=== PATIENT | female | born 1980 | race Caucasian/White ===

== ENCOUNTER → 2017-12-01 | Outpatient (CLI) | payer OTHER ==
[~2017-12-01] MED LIST: ACETAMINOPHEN-H1 TA2 PO; BENTYL10 MG PO; BIOTIN1000 MCG PO; CIPRO500 MG PO; DOXYCYCLINE MO100 MG PO; IBUPROFEN200 MG PO; LORATADINE10 MG PO; MULTIVITAMIN1 TAB PO; NAPROSYN500 MG PO; NAPROXEN500 M1 PO; OMEPRAZOLE D/R20 MG PO; OMEPRAZOLE40 MG PO; TYLENOL325 M2 PO; ULTRAM50 MG PO; VITAMIN B121000 MCG PO; VITAMIN C500 M4 PO
[2017-12-01 11:54] LABS: BASO % 0.3 % (0.0-1.0); EOS # 0.1 10*3/uL (0.0-0.4); EOS % 0.7 % (1.0-4.0); HEMATOCRIT 48.6 % (37.0-47.0); HEMOGLOBIN 15.5 g/dl (12.0-16.0); LYMPH # 1.7 10*3/uL (1.3-4.4); LYMPH % 18.7 % (27.0-41.0); MEAN CELL VOLUME 86.2 fl (81.0-99.0); MEAN CORPUSCULAR HGB 27.5 pg (27.0-31.0); MEAN CORPUSCULAR HGB CONC 31.9 g/dl (33.0-37.0); MEAN PLATELET VOLUME 13.3 fl (9.6-12.3); MONO # 0.6 10*3/uL (0.1-1.0); MONO % 6.3 % (3.0-9.0); NEUT # 6.8 10*3/uL (2.3-7.9); NEUT % 73.7 % (47.0-73.0); PLATELET COUNT AUTOMATED 243 10*3/uL (130-400); RED BLOOD COUNT 5.64 10*6/uL (4.10-5.10); RED CELL DISTRI WIDTH 13.9 % (0-14.5); WHITE BLOOD COUNT 9.2 10*3/uL (4.8-10.8)
[2017-12-01 12:18] LABS: LIPASE 114 U/L (73-393)
[2017-12-01 12:22] LABS: ALBUMIN 4.2 gm/dl (3.1-4.5); ALKALINE PHOSPHATASE 103 U/L (45-117); BUN 12 mg/dl (7-24); CHLORIDE 104 mmol/L (98-107); CHOLESTEROL 202 mg/dL (<200); CREATININE 0.97 mg/dL (0.55-1.02); HDL CHOLESTEROL 62 mg/dl (40-60); IRON 127 ug/dL (50-170); LDL CHOLESTEROL 124 mg/dL (9-159); SGOT/AST 20 IU/L (3-35); SGPT/ALT 48 U/L (12-78); SODIUM 136 mmol/L (136-145); TOTAL IRON BINDING CAPACITY 454 ug/dl (250-450); TOTAL PROTEIN 8.4 gm/dL (6.4-8.2); TRIGLYCERIDES 79 mg/dl (<150); VLDL CHOLESTEROL 16 mg/dL (6-40)
[2017-12-01 13:15] LABS: FERRITIN 46.1 ng/mL (10.0-291.0); VITAMIN D, 25-HYDROXY 27.4 ng/mL (30-100)
[2017-12-02 17:38] LABS: RHEUMATOID ARTHRITIS FACTOR <10.0 IU/mL (0.0-13.9)
[2017-12-02 22:05] LABS: CCP ANTIBODIES IGG/IGA 20 units (0-19)
== END | disposition home or self-care (01) ==
LOC: LAB 11:04
PROVIDERS: Internal Medicine Gastroenterology; Nurse Practitioner Family
DX: M25.562 Pain in left knee (principal); R10.84 Generalized abdominal pain; E78.2 Mixed hyperlipidemia; J45.909 Unspecified asthma, uncomplicated; E55.9 Vitamin D deficiency, unspecified; E66.9 Obesity, unspecified

== ENCOUNTER → 2018-01-20 | Outpatient (CLI) | payer OTHER | END | disposition home or self-care (01) | LOC: US 01-14 16:00 | DX: N89.8 Other specified noninflammatory disorders of vagina (principal); R10.2 Pelvic and perineal pain ==

== ENCOUNTER 2018-03-01 11:18 | Emergency (ER) | payer OTHER ==
[~2018-03-01] VITALS: Ht 157.4 cm; Wt 88.9 kg
[2018-03-01 11:42] LABS: BASO % 0.4 % (0.0-1.0); EOS # 0.1 10*3/uL (0.0-0.4); EOS % 1.1 % (1.0-4.0); HEMATOCRIT 43.7 % (37.0-47.0); HEMOGLOBIN 14.5 g/dl (12.0-16.0); LYMPH # 1.8 10*3/uL (1.3-4.4); LYMPH % 17.4 % (27.0-41.0); MEAN CELL VOLUME 86.4 fl (81.0-99.0); MEAN CORPUSCULAR HGB 28.7 pg (27.0-31.0); MEAN CORPUSCULAR HGB CONC 33.2 g/dl (33.0-37.0); MEAN PLATELET VOLUME 12.5 fl (9.6-12.3); MONO # 0.8 10*3/uL (0.1-1.0); MONO % 7.2 % (3.0-9.0); NEUT # 7.7 10*3/uL (2.3-7.9); NEUT % 73.7 % (47.0-73.0); PLATELET COUNT AUTOMATED 284 10*3/uL (130-400); RED BLOOD COUNT 5.06 10*6/uL (4.10-5.10); RED CELL DISTRI WIDTH 13.9 % (0-14.5); WHITE BLOOD COUNT 10.4 10*3/uL (4.8-10.8)
[2018-03-01 11:46] LABS: BILIRUBIN NEGATIVE (NEGATIVE); BLOOD NEGATIVE (NEGATIVE); CLARITY SL CLOUDY (CLEAR); COLOR YELLOW (YELLOW); GLUCOSE NEGATIVE (NEGATIVE); KETONE NEGATIVE (NEGATIVE); LEUKO ESTERASE NEGATIVE (NEGATIVE); NITRITE NEGATIVE (NEGATIVE); SPECIFIC GRAVITY 1.015 (1.005-1.030); UROBILINOGEN 0.2 E.U./dl (0.2-1.0)
[2018-03-01 11:56] LABS: ALBUMIN 3.7 gm/dl (3.1-4.5); ALKALINE PHOSPHATASE 88 U/L (45-117); BUN 15 mg/dl (7-24); CHLORIDE 109 mmol/L (98-107); CREATININE 0.91 mg/dL (0.55-1.02); POTASSIUM 4.2 mmol/L (3.5-5.1); SGOT/AST 18 IU/L (3-35); SGPT/ALT 40 U/L (12-78); SODIUM 140 mmol/L (136-145); TOTAL PROTEIN 7.6 gm/dL (6.4-8.2)
[2018-03-01 12:03] LABS: BACTERIA 2+; MUCOUS 1+; WBC 0-2 wbc/hpf (0-5)
== END 2018-03-01 12:19 | disposition home or self-care (01) ==
LOC: ED 11:18
PROVIDERS: Nurse Practitioner Family
DX: R10.32 Left lower quadrant pain (principal); Z90.89 Acquired absence of other organs; Z98.51 Tubal ligation status; Z98.890 Other specified postprocedural states; Z79.899 Other long term (current) drug therapy

== ENCOUNTER 2018-03-29 11:13 | Emergency (ER) | payer OTHER ==
[~2018-03-29] VITALS: Ht 157.4 cm; Wt 89.4 kg
[2018-03-29 11:51] LABS: BILIRUBIN NEGATIVE (NEGATIVE); BLOOD NEGATIVE (NEGATIVE); CLARITY SL CLOUDY (CLEAR); COLOR YELLOW (YELLOW); GLUCOSE NEGATIVE (NEGATIVE); KETONE NEGATIVE (NEGATIVE); LEUKO ESTERASE NEGATIVE (NEGATIVE); NITRITE NEGATIVE (NEGATIVE); SPECIFIC GRAVITY 1.015 (1.005-1.030); UROBILINOGEN 0.2 E.U./dl (0.2-1.0)
[2018-03-29 11:52] LABS: BASO % 0.4 % (0.0-1.0); EOS # 0.1 10*3/uL (0.0-0.4); EOS % 0.9 % (1.0-4.0); HEMATOCRIT 46.5 % (37.0-47.0); HEMOGLOBIN 15.1 g/dl (12.0-16.0); LYMPH # 1.8 10*3/uL (1.3-4.4); LYMPH % 17.6 % (27.0-41.0); MEAN CELL VOLUME 86.9 fl (81.0-99.0); MEAN CORPUSCULAR HGB 28.2 pg (27.0-31.0); MEAN CORPUSCULAR HGB CONC 32.5 g/dl (33.0-37.0); MEAN PLATELET VOLUME 12.3 fl (9.6-12.3); MONO # 0.7 10*3/uL (0.1-1.0); MONO % 7.4 % (3.0-9.0); NEUT # 7.3 10*3/uL (2.3-7.9); NEUT % 73.4 % (47.0-73.0); PLATELET COUNT AUTOMATED 254 10*3/uL (130-400); RED BLOOD COUNT 5.35 10*6/uL (4.10-5.10); RED CELL DISTRI WIDTH 14.4 % (0-14.5)
[2018-03-29 12:03] LABS: BACTERIA 2+; RBC 0-2 rbc/hpf (0-2)
[2018-03-29 12:08] LABS: ALBUMIN 3.7 gm/dl (3.1-4.5); ALKALINE PHOSPHATASE 94 U/L (45-117); BUN 9 mg/dl (7-24); CHLORIDE 107 mmol/L (98-107); CREATININE 0.95 mg/dL (0.55-1.02); LIPASE 138 U/L (73-393); POTASSIUM 4.3 mmol/L (3.5-5.1); SGOT/AST 23 IU/L (3-35); SGPT/ALT 40 U/L (12-78); SODIUM 139 mmol/L (136-145); TOTAL PROTEIN 7.9 gm/dL (6.4-8.2)
[2018-05-12] MEDS ORDERED: CELEXA10 MG PO (11:47)
[2018-05-12] MEDS ORDERED: DIAZEPAM5 MG PO (11:48)
[2018-05-12] MEDS ORDERED: BUSPAR15 MG PO (11:48)
[2018-05-16] MEDS ORDERED: NORCO 5-325 TA1 EACH PO (08:23)
[2018-05-16] MEDS ORDERED: Motrin,Rufen800 MG PO (08:23)
[2018-07-19] MEDS ORDERED: PROTONIX40 MG PO (11:55)
[2018-08-30] MEDS ORDERED: POTASSIUM99 M5 PO (10:11)
[2018-09-19] MEDS ORDERED: LIDEX 0.05% CRE15 GM T (14:41)
[2018-09-19] MEDS ORDERED: MEDROL DOSEPAK4 MG PO (15:10)
== END 2018-03-29 14:04 | disposition home or self-care (01) ==
LOC: ED 11:13
PROVIDERS: Nurse Practitioner Family
DX: G43.909 Migraine, unspecified, not intractable, without status migrainosus (principal); G89.29 Other chronic pain; R10.9 Unspecified abdominal pain; Z79.2 Long term (current) use of antibiotics; Z79.899 Other long term (current) drug therapy

== ENCOUNTER → 2018-05-16 | Day surgery (SDC) | payer OTHER ==
[~2018-05-16] VITALS: Ht 157.4 cm; Wt 90.3 kg
[~2018-05-16] MED LIST changes: +BUSPAR15 MG PO; +BUSPAR5 MG PO; +CELEXA10 MG PO; +DIAZEPAM5 MG PO; +HYDROCODONE-AC1 EAC1 PO; +LIDEX 0.05% CRE15 GM T; +MEDROL DOSEPAK4 MG PO; +Motrin,Rufen800 MG PO; +NORCO 5-325 TA1 EACH PO; +POTASSIUM99 M5 PO; +PROTONIX40 MG PO
[2018-05-16 07:00] VITALS: BP 138/84
[2018-05-16 08:22] VITALS: BP 154/71
[2018-05-16 08:37] VITALS: BP 132/46
[2018-05-16 08:52] VITALS: BP 102/55
[2018-05-16 09:07] VITALS: BP 114/57
[2018-05-16 09:22] VITALS: BP 117/61
== END | disposition home or self-care (01) ==
LOC: SDC 05-12 11:00
DX: N83.8 Other noninflammatory disorders of ovary, fallopian tube and broad ligament (principal); N88.2 Stricture and stenosis of cervix uteri; G43.909 Migraine, unspecified, not intractable, without status migrainosus; J45.909 Unspecified asthma, uncomplicated; E78.5 Hyperlipidemia, unspecified; K21.9 Gastro-esophageal reflux disease without esophagitis; M06.9 Rheumatoid arthritis, unspecified; F10.229 Alcohol dependence with intoxication, unspecified; F41.9 Anxiety disorder, unspecified; F32.9 Major depressive disorder, single episode, unspecified; E66.9 Obesity, unspecified; Z68.36 Body mass index [BMI] 36.0-36.9, adult; Z86.718 Personal history of other venous thrombosis and embolism; Z98.890 Other specified postprocedural states; Z98.51 Tubal ligation status; Z79.899 Other long term (current) drug therapy; Z86.73 Personal history of transient ischemic attack (TIA), and cerebral infarction without residual deficits; Z82.49 Family history of ischemic heart disease and other diseases of the circulatory system; Z82.3 Family history of stroke; Z83.3 Family history of diabetes mellitus

== ENCOUNTER → 2018-07-25 | Outpatient (CLI) | payer OTHER ==
[~2018-07-25] VITALS: Ht 162.5 cm; Wt 91.6 kg
[2018-07-26 06:56] VITALS: BP 115/44
--- NOTE | 2018-07-26 08:18 | NUR ---
SURGERY CANCELLED DUE TO EQUIPMENT ISSUES. DR. ROBLERO SPOKE TO PT. IV D'CD, CATHETER INTACT, 2X2 APPLIED. DISCHARGED AMBULATORY WITH MOTHER.
== END ==
LOC: SDC 07-19 14:00 → LAB 07:46 → SDC 07-26 00:14 → EDSTATUS 07-26 14:00
DX: N94.6 Dysmenorrhea, unspecified (principal); N93.9 Abnormal uterine and vaginal bleeding, unspecified; R10.2 Pelvic and perineal pain; G89.29 Other chronic pain; G43.909 Migraine, unspecified, not intractable, without status migrainosus; J45.909 Unspecified asthma, uncomplicated; E78.5 Hyperlipidemia, unspecified; K21.9 Gastro-esophageal reflux disease without esophagitis; M06.9 Rheumatoid arthritis, unspecified; F19.10 Other psychoactive substance abuse, uncomplicated; E66.9 Obesity, unspecified; Z68.34 Body mass index [BMI] 34.0-34.9, adult; F10.129 Alcohol abuse with intoxication, unspecified; Z79.899 Other long term (current) drug therapy; Z98.890 Other specified postprocedural states; Z98.51 Tubal ligation status; Z86.718 Personal history of other venous thrombosis and embolism; Z82.3 Family history of stroke; Z82.49 Family history of ischemic heart disease and other diseases of the circulatory system; Z83.3 Family history of diabetes mellitus

== ENCOUNTER 2018-09-06 01:08 | Inpatient (IN) | payer OTHER ==
[~2018-09-06] VITALS: Ht 157.4 cm; Wt 91.6 kg
[2018-09-06] VITALS (11 sets, daily range): BP systolic 110–142; BP diastolic 46–77
[~2018-09-06 01:08] MED LIST changes: -BUSPAR5 MG PO; -HYDROCODONE-AC1 EAC1 PO; -LIDEX 0.05% CRE15 GM T; -MEDROL DOSEPAK4 MG PO
--- NOTE | 2018-09-06 09:18 | NUR ---
PER DR GU, GIVE PATIENT 2 MG IV VERSED. PATIENT'S IV WAS INFILTRATED SO HE BELIEVED SHE DID NOT GET THE FIRST DOSE.
--- NOTE | 2018-09-06 14:00 | NUR ---
Time: 1399 A 38 year old FEMALE admitted to under services of SHAR HERNANDEZ DO. Pt. arrived via stretcher from [place]. Chief complaint: S/P HYSTERECTOMY. ERNA AMOS
[2018-09-06] MEDS ORDERED: BUSPAR5 MG PO (14:05)
--- NOTE | 2018-09-06 14:20 | NUR ---
Shift chart check completed.
--- NOTE | 2018-09-06 15:58 | NUR ---
REGLAN & ZOFRAN GIVEN FOR C/O MILD NAUSEA & STOMACH CRAMPS. NO BOWEL MOVEMENT SINCE WEDNESDAY BUT WAS DIARRHEA FOR 4 DAYS PRIOR TO THAT D/T IBS. LAP SITES X2 GLUED & NO REDNESS/DRAINAGE SEEN.
--- NOTE | 2018-09-06 17:03 | NUR ---
SOME RELIEF FROM REGLAN & ZOFRAN - PAIN NOW 07/18...ROUTINE TORADOL GIVEN. SCD & JANNETTE PINEDA ON
--- NOTE | 2018-09-06 18:31 | NUR ---
PAIN STILL 07/18 BUT NOT SHARP & SHE IS NOW STRTING TO FEEL THINGS MOVE ABOUT
--- NOTE | 2018-09-06 21:09 | NUR ---
pt given norco one tablet as ordered for pain 8/10 lower abdominal.
--- NOTE | 2018-09-06 21:50 | NUR ---
CALLED DR. ROBLERO AND NOTIFIED HER OF PT. IN SEVERE PAIN AFTER MOVING FROM RIGHT SIDE TO BACK AND TO SOON TO GIVEN NORCO. ORDER RECEIVED TO ANOTHER [place] AT THIS TIME.
--- NOTE | 2018-09-06 21:57 | NUR ---
SEGUNDOCO GIVEN PER ORDER 1 TAB FOR SEVERE PAIN. SEE MAR.
--- NOTE | 2018-09-06 22:33 | NUR ---
MYLECON GIVEN PER ORDER FOR GAS. SEE MAR.
--- NOTE | 2018-09-06 22:39 | NUR ---
SECOND NORCO EFFECTIVE FOR PAIN PER PT.
--- NOTE | 2018-09-06 22:54 | NUR ---
NORCO EFFECTIVE FOR PAIN PER PT.
--- NOTE | 2018-09-06 23:40 | NUR ---
CHRISTIANE EFFECTIVE PER PT.
[2018-09-07] VITALS: BP 117/50
--- NOTE | 2018-09-07 04:21 | NUR ---
NORCO 2 TABS GIVEN AT THIS TIME FOR ABDOMEN PAIN 09/17.
--- NOTE | 2018-09-07 05:20 | NUR ---
NORCO BECOMING EFFECTIVE FOR ABD PAIN PER PT. EDUCATED ON SPLINTING ABD WITH COUGHING, LAUGHING OR SNEEZING. PT. VOICED UNDERSTANDING.
--- NOTE | 2018-09-07 05:58 | NUR ---
FAHAD GARCIA [id number] Please refer to the physician's history and physical for past medical history, comorbid conditions, and allergies. Diagnosis: S/P LAP ASSISTED VAGINAL HYSTERECTOMY Fadi Score: 21,LOW OR NO RISK WOUND DESCRIPTIONS: Wound Number: 1 Location of the wound: right lower abdomen Type of wound: surgical Thickness: Partial Size: 0.1cm x 1.6cm x <0.1cm Tunneling: none Undermining: none Sinus Tract: none Presence of Exudate: none Amount: None Color: Red Odor: None Periwound Skin Appearance: Normal Wound edges: approximated with glue Pain (associated with wound): none at time of assessment How does patient state this happened? pt stated she had surgery yesterday with Dr. Jacobsen. Wound Number: 2 Location of the wound: umbilicus Type of wound: surgical Thickness: Partial Size: 0.5cm x 0.2cm x <0.1cm Tunneling: none Undermining: none Sinus Tract: none Presence of Exudate: none Amount: None Color: Red Odor: None Periwound Skin Appearance: Normal Wound edges: approximated with glue Pain (associated with wound): none at time of assessment How does patient state this happened? pt stated she had surgery yesterday with Dr. Jacobsen. Wound Number: 1 Location of the wound: left lower abdomen Type of wound: surgical Thickness: Partial Size: 0.1cm x 2.5cm x <0.1cm Tunneling: none Undermining: none Sinus Tract: none Presence of Exudate: none Amount: None Color: Red Odor: None Periwound Skin Appearance: Normal Wound edges: approximated with glue Pain (associated with wound): none at time of assessment How does patient state this happened? pt stated she had surgery yesterday with Dr. Jacobsen. Patient stated she will follow up with Dr. Jacobsen in one month. Surface the patient is resting on: Position Pro SKIN PREVENTION RECOMMENDATION: 1. Pressure redistribution support surface as appropriate 2. Elevate heels 3. Remove boots/TEDS every shift and reapply 4. Head of bed 30 degrees as tolerated 5. Assess nutrition and hydration 6. Manage moisture 7. Avoid the use of containment devices while in bed 8. Use absorptive products on surfaces limit layers of linens on bed 9. Turn and reposition every 1-2 hours in bed and every 1 hour in chair as tolerated 10. Weight shifts every 15 minutes while up in chair 11. Offloading with pillows or device to keep heels elevated off bed 12. Monitor skin at least every shift 13. Inspect under medical devices twice a day
--- NOTE | 2018-09-07 06:06 | NUR ---
CAMPBELL CATHETER REMOVED PER ORDER. PT. TOLERATED WELL. PT. SITTING UP AT SIDE OF BED. SPLINTING DONE. I.S. INUSE
[2018-09-07 07:06] LABS: BASO % 0.2 % (0.0-1.0); HEMATOCRIT 40.8 % (37.0-47.0); LYMPH # 1.8 10*3/uL (1.3-4.4); LYMPH % 9.3 % (27.0-41.0); MEAN CELL VOLUME 87.4 fl (81.0-99.0); MEAN CORPUSCULAR HGB 27.8 pg (27.0-31.0); MEAN CORPUSCULAR HGB CONC 31.9 g/dl (33.0-37.0); MEAN PLATELET VOLUME 13.6 fl (9.6-12.3); MONO # 1.1 10*3/uL (0.1-1.0); MONO % 5.6 % (3.0-9.0); NEUT # 16.6 10*3/uL (2.3-7.9); NEUT % 84.4 % (47.0-73.0); PLATELET COUNT AUTOMATED 218 10*3/uL (130-400); RED BLOOD COUNT 4.67 10*6/uL (4.10-5.10); RED CELL DISTRI WIDTH 13.6 % (0-14.5); WHITE BLOOD COUNT 19.6 10*3/uL (4.8-10.8)
[2018-09-07 08:00] VITALS: BP 140/74
--- NOTE | 2018-09-07 08:02 | NUR ---
PT VOIDING SINCE CAMPBELL CATHETER REMOVED.
--- NOTE | 2018-09-07 08:58 | NUR ---
PT MEDICATED WITH 2 NORCO AT HER REQUEST FOR SURGICAL SITE ABD PAIN.
--- NOTE | 2018-09-07 09:00 | NUR ---
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 Patient states lives at home with her daughter. There are 0 steps in the home. Physician: [facility] Bowman [facility]: [facility] Home health services: none Patient's level of ADLs: INDEPENDENT Patient has working utilities: yes DME: none Follow-up physician's appointment after d/c: she prefers to make her own follow up appt after discharge Does patient want to access PORTAL?: no Discharge plan discussed with patient. She lives at home with her daughter. After discharge she is going to stay with her mom for the night and then return home the next day. She is independent in her ADLs and ambulation. Discussed home health care services and she denies any home needs at this time. When medically stable she will be discharged to home. Her mother, Dhara, will transport on discharge. 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
[2018-09-07 12:00] VITALS: BP 134/76
[2018-09-07] MEDS ORDERED: HYDROCODONE-AC1 EAC1 PO (12:40)
[2018-09-07] MEDS ORDERED: Motrin,Rufen800 MG PO (12:40)
--- NOTE | 2018-09-07 13:52 | NUR ---
Discharge instructions reviewed with patient/family. Patient receptive and verbalizes understanding. Follow-up care arranged. Written instructions given to patient/family. ERNA AMOS
--- NOTE | 2018-09-07 13:59 | NUR ---
PT DISCHARGED AT THIS TIME WITH MOTHER TO HOME.
--- NOTE | 2018-09-07 13:59 | NUR ---
BINDER PLACED TO PT'S ABD.
[2018-09-19] MEDS ORDERED: LIDEX 0.05% CRE15 GM T (14:41)
[2018-09-19] MEDS ORDERED: MEDROL DOSEPAK4 MG PO (15:10)
== END 2018-09-07 13:59 | disposition home or self-care (01) | DRG 743 ==
LOC: LAB 01:08 → SDC 01:08 → 4E 08:18 → SDC 09:30 → LAB 09:30 → 4E 09-07 13:59
PROVIDERS: ADMIT Obstetrics & Gynecology
PROC: 0UT9FZZ Resection of Uterus, Via Natural or Artificial Opening With Percutaneous Endoscopic Assistance (ICD-10-PCS; principal; 2018-09-06)
PROC: 0UT7FZZ Resection of Bilateral Fallopian Tubes, Via Natural or Artificial Opening With Percutaneous Endoscopic Assistance (ICD-10-PCS; 2018-09-06)
DX: N88.2 Stricture and stenosis of cervix uteri (principal); N80.0 Endometriosis of uterus; G89.29 Other chronic pain; N83.8 Other noninflammatory disorders of ovary, fallopian tube and broad ligament; E28.2 Polycystic ovarian syndrome; J45.909 Unspecified asthma, uncomplicated; N94.6 Dysmenorrhea, unspecified; M06.9 Rheumatoid arthritis, unspecified; E78.5 Hyperlipidemia, unspecified; K21.9 Gastro-esophageal reflux disease without esophagitis; G43.909 Migraine, unspecified, not intractable, without status migrainosus; F19.10 Other psychoactive substance abuse, uncomplicated; K58.9 Irritable bowel syndrome, unspecified; Z98.51 Tubal ligation status; Z82.3 Family history of stroke; Z82.61 Family history of arthritis; Z87.19 Personal history of other diseases of the digestive system; Z86.718 Personal history of other venous thrombosis and embolism; Z82.49 Family history of ischemic heart disease and other diseases of the circulatory system; Z79.899 Other long term (current) drug therapy

== ENCOUNTER 2019-01-29 17:21 | Emergency (ER) | payer OTHER ==
[~2019-01-29] VITALS: Ht 157.4 cm; Wt 93.9 kg
[~2019-01-29 17:21] MED LIST changes: +BUSPAR5 MG PO; +HYDROCODONE-AC1 EAC1 PO; +LIDEX 0.05% CRE15 GM T; +MEDROL DOSEPAK4 MG PO
[2019-01-29] MEDS ORDERED: Motrin,Rufen800 MG PO (19:27)
[2019-01-29] MEDS ORDERED: CYCLOBENZAPRINE5 M3 PO (19:27)
== END 2019-01-29 19:28 | disposition home or self-care (01) ==
LOC: ED 17:21
DX: S09.90XA Unspecified injury of head, initial encounter (principal); M54.12 Radiculopathy, cervical region; K21.9 Gastro-esophageal reflux disease without esophagitis; J45.909 Unspecified asthma, uncomplicated; M06.9 Rheumatoid arthritis, unspecified; W22.09XA Striking against other stationary object, initial encounter; Y93.89 Activity, other specified; Y92.69 Other specified industrial and construction area as the place of occurrence of the external cause; Y99.8 Other external cause status

== ENCOUNTER 2019-11-08 18:12 | Emergency (ER) | payer OTHER ==
[~2019-11-08 18:12] MED LIST changes: +CYCLOBENZAPRINE5 M3 PO
[2019-11-08] MEDS ORDERED: DOXYCYCLINE100 M3 PO (20:41)
[2019-11-08] MEDS ORDERED: ANTIBIOTIC28.4 GM T (20:41)
[2019-11-08] MEDS ORDERED: IBU800 MG PO (20:41)
== END 2019-11-08 20:58 | disposition home or self-care (01) ==
LOC: ED 18:12
DX: S16.1XXA Strain of muscle, fascia and tendon at neck level, initial encounter (principal); M54.6 Pain in thoracic spine; L08.9 Local infection of the skin and subcutaneous tissue, unspecified; Z88.8 Allergy status to other drugs, medicaments and biological substances; Z79.899 Other long term (current) drug therapy; W18.39XA Other fall on same level, initial encounter; Y93.89 Activity, other specified; Y92.89 Other specified places as the place of occurrence of the external cause; Y99.8 Other external cause status

== ENCOUNTER 2020-06-18 18:42 | Emergency (ER) | payer OTHER ==
[~2020-06-18] VITALS: Ht 157.4 cm; Wt 115.7 kg
[~2020-06-18 18:42] MED LIST changes: +ANTIBIOTIC28.4 GM T; +DOXYCYCLINE100 M3 PO; +IBU800 MG PO
[2020-06-18] MEDS ORDERED: NAPROSYN500 MG PO (22:24)
== END 2020-06-18 23:30 | disposition home or self-care (01) ==
LOC: ED 18:42
DX: M79.662 Pain in left lower leg (principal); Z90.89 Acquired absence of other organs; Z79.899 Other long term (current) drug therapy; Z88.8 Allergy status to other drugs, medicaments and biological substances; Z86.718 Personal history of other venous thrombosis and embolism

== ENCOUNTER → 2021-01-12 | Outpatient (CLI) | payer BC, OTHER ==
[2021-01-12 14:33] LABS: BASO # 0.1 10*3/uL (0.0-0.1); BASO % 0.5 % (0.0-1.0); EOS # 0.2 10*3/uL (0.0-0.4); EOS % 2.1 % (1.0-4.0); HEMATOCRIT 45.1 % (37.0-47.0); LYMPH # 2.4 10*3/uL (1.3-4.4); LYMPH % 22.8 % (27.0-41.0); MEAN CELL VOLUME 85.1 fl (81.0-99.0); MEAN CORPUSCULAR HGB 27.2 pg (27.0-31.0); MEAN CORPUSCULAR HGB CONC 31.9 g/dl (33.0-37.0); MEAN PLATELET VOLUME 12.6 fl (9.6-12.3); MONO # 0.8 10*3/uL (0.1-1.0); MONO % 7.2 % (3.0-9.0); NEUT # 7.2 10*3/uL (2.3-7.9); PLATELET COUNT AUTOMATED 289 10*3/uL (130-400); RED CELL DISTRI WIDTH 13.8 % (0-14.5); WHITE BLOOD COUNT 10.7 10*3/uL (4.8-10.8)
[2021-01-12 14:51] LABS: ALBUMIN 3.5 gm/dl (3.1-4.5); ALKALINE PHOSPHATASE 101 U/L (45-117); BUN 12 mg/dl (7-24); CHLORIDE 106 mmol/L (98-107); CHOLESTEROL 188 mg/dL (<200); CREATININE 0.83 mg/dL (0.55-1.02); LDL CHOLESTEROL 121 mg/dL (9-159); POTASSIUM 3.9 mmol/L (3.5-5.1); SGOT/AST 17 IU/L (3-35); SGPT/ALT 44 U/L (12-78); SODIUM 136 mmol/L (136-145); TRIGLYCERIDES 81 mg/dl (<150)
== END | disposition home or self-care (01) ==
LOC: LAB 13:42
PROVIDERS: ATTEND Nurse Practitioner Family
DX: E78.2 Mixed hyperlipidemia (principal); E55.9 Vitamin D deficiency, unspecified

== ENCOUNTER → 2021-04-15 | Outpatient (CLI) | payer BC, OTHER | END | disposition home or self-care (01) | LOC: RAD 16:05 | PROVIDERS: ATTEND Nurse Practitioner Family | DX: M25.551 Pain in right hip (principal) ==

== ENCOUNTER → 2021-10-14 | Outpatient (CLI) | payer BC, OTHER | END | disposition home or self-care (01) | LOC: RAD 16:16 | PROVIDERS: ATTEND Nurse Practitioner Family | DX: U07.1 COVID-19 (principal) ==

== ENCOUNTER → 2021-12-04 | Outpatient (CLI) | payer BC, OTHER | END | disposition home or self-care (01) | LOC: RAD 13:48 | PROVIDERS: ATTEND Nurse Practitioner Family | DX: M21.242 Flexion deformity, left finger joints (principal); M79.89 Other specified soft tissue disorders ==

== ENCOUNTER 2022-09-28 14:49 | Emergency (ER) | payer BC, OTHER ==
[~2022-09-28] VITALS: Ht 157.4 cm; Wt 114.3 kg
[2022-09-28 15:37] LABS: BASO # 0.1 10*3/uL (0.0-0.1); BASO % 0.4 % (0.0-1.0); EOS # 0.1 10*3/uL (0.0-0.4); EOS % 0.9 % (1.0-4.0); HEMATOCRIT 42.5 % (37.0-47.0); LYMPH % 20.8 % (27.0-41.0); MEAN CELL VOLUME 83.8 fl (81.0-99.0); MEAN CORPUSCULAR HGB 28.2 pg (27.0-31.0); MEAN CORPUSCULAR HGB CONC 33.6 g/dl (33.0-37.0); MEAN PLATELET VOLUME 12.3 fl (9.6-12.3); MONO % 6.8 % (3.0-9.0); NEUT # 10.1 10*3/uL (2.3-7.9); NEUT % 70.7 % (47.0-73.0); PLATELET COUNT AUTOMATED 278 10*3/uL (130-400); RED BLOOD COUNT 5.07 10*6/uL (4.10-5.10); RED CELL DISTRI WIDTH 13.8 % (0-14.5); WHITE BLOOD COUNT 14.3 10*3/uL (4.8-10.8)
[2022-09-28 15:58] LABS: ALKALINE PHOSPHATASE 109 U/L (46-116); BUN 10 mg/dl (9-23); CHLORIDE 107 mmol/L (98-107); LIPASE 37 U/L (12-53); POTASSIUM 3.7 mmol/L (3.4-5.1); SGPT/ALT 27 U/L (10-49); TOTAL PROTEIN 7.4 gm/dL (6.0-8.0)
[2022-09-28 17:15] LABS: BILIRUBIN Negative (Negative); BLOOD Negative (Negative); CLARITY Clear (Clear); COLOR Yellow (Yellow); GLUCOSE Negative (Negative); KETONE Negative (Negative); LEUKO ESTERASE Negative (Negative); NITRITE Negative (Negative); PH 5.5 (4.5-8.0); UROBILINOGEN 0.2 E.U./dl (0.0-1.0)
[2022-09-28 17:22] LABS: RBC 0-2 rbc/hpf (0-2)
[2022-09-28] MEDS ORDERED: PERCOCET 5-3251 EACH PO (17:46)
[2022-09-28] MEDS ORDERED: CIPRO500 MG PO (17:46)
[2022-09-28] MEDS ORDERED: METRONIDAZOLE500 M1 PO (17:46)
== END 2022-09-28 17:55 | disposition home or self-care (01) ==
LOC: ED 14:49
PROVIDERS: Nurse Practitioner Family
DX: K52.9 Noninfective gastroenteritis and colitis, unspecified (principal); K92.1 Melena; F41.9 Anxiety disorder, unspecified; K21.9 Gastro-esophageal reflux disease without esophagitis; Z79.2 Long term (current) use of antibiotics; Z79.899 Other long term (current) drug therapy; Z90.89 Acquired absence of other organs; Z98.51 Tubal ligation status

== ENCOUNTER 2022-10-15 11:39 | Emergency (ER) | payer BC, OTHER ==
[~2022-10-15] VITALS: Ht 157.4 cm; Wt 112.5 kg
[~2022-10-15 11:39] MED LIST changes: +METRONIDAZOLE500 M1 PO; +PERCOCET 5-3251 EACH PO
[2022-10-15 12:24] LABS: BASO # 0.1 10*3/uL (0.0-0.1); BASO % 0.5 % (0.0-1.0); EOS # 0.2 10*3/uL (0.0-0.4); EOS % 1.8 % (1.0-4.0); HEMATOCRIT 43.4 % (37.0-47.0); LYMPH # 2.1 10*3/uL (1.3-4.4); LYMPH % 19.4 % (27.0-41.0); MEAN CELL VOLUME 86.1 fl (81.0-99.0); MEAN CORPUSCULAR HGB 28.6 pg (27.0-31.0); MEAN CORPUSCULAR HGB CONC 33.2 g/dl (33.0-37.0); MEAN PLATELET VOLUME 12.2 fl (9.6-12.3); MONO # 0.9 10*3/uL (0.1-1.0); MONO % 8.1 % (3.0-9.0); NEUT # 7.7 10*3/uL (2.3-7.9); NEUT % 69.9 % (47.0-73.0); PLATELET COUNT AUTOMATED 258 10*3/uL (130-400); RED BLOOD COUNT 5.04 10*6/uL (4.10-5.10)
[2022-10-15 12:51] LABS: ALKALINE PHOSPHATASE 103 U/L (46-116); BUN 10 mg/dl (9-23); CHLORIDE 106 mmol/L (98-107); LIPASE 35 U/L (12-53); POTASSIUM 4.1 mmol/L (3.4-5.1); SGPT/ALT 42 U/L (10-49); TOTAL PROTEIN 7.2 gm/dL (6.0-8.0)
[2022-10-15 14:17] LABS: BILIRUBIN Negative (Negative); BLOOD Negative (Negative); CLARITY Cloudy (Clear); COLOR Yellow (Yellow); GLUCOSE Negative (Negative); KETONE Trace (Negative); LEUKO ESTERASE Trace (Negative); NITRITE Negative (Negative); PH 5.5 (4.5-8.0); SPECIFIC GRAVITY >= 1.030 (1.001-1.030)
[2022-10-15 14:27] LABS: BACTERIA 1+; CALCIUM OXALATE CRYSTALS Trace; RBC 0-2 rbc/hpf (0-2)
[2022-10-15 14:28] LABS: HYALINE CAST 0-2
== END 2022-10-15 14:42 | disposition home or self-care (01) ==
LOC: ED 11:39
PROVIDERS: Physician Assistant Medical
DX: K21.9 Gastro-esophageal reflux disease without esophagitis (principal); J45.909 Unspecified asthma, uncomplicated; Z87.442 Personal history of urinary calculi; F10.10 Alcohol abuse, uncomplicated; M19.90 Unspecified osteoarthritis, unspecified site; Z88.8 Allergy status to other drugs, medicaments and biological substances; Z90.89 Acquired absence of other organs; Z98.890 Other specified postprocedural states; Z98.51 Tubal ligation status

== ENCOUNTER → 2023-02-24 | Outpatient (CLI) | payer BC, OTHER | END | disposition home or self-care (01) | LOC: CT 10:32 | PROVIDERS: ATTEND Nurse Practitioner Family | DX: S06.0X0A Concussion without loss of consciousness, initial encounter (principal); G44.319 Acute post-traumatic headache, not intractable; X58.XXXA Exposure to other specified factors, initial encounter; Y93.89 Activity, other specified; Y92.89 Other specified places as the place of occurrence of the external cause; Y99.8 Other external cause status ==

== ENCOUNTER → 2023-07-27 | Outpatient (CLI) | payer BC ==
[2023-07-27 10:43] LABS: ALKALINE PHOSPHATASE 111 U/L (46-116); BUN 7 mg/dl (9-23); CHLORIDE 106 mmol/L (98-107); POTASSIUM 4.1 mmol/L (3.4-5.1); SGPT/ALT 29 U/L (5-49); TOTAL PROTEIN 7.6 gm/dL (6.0-8.0)
== END | disposition home or self-care (01) ==
LOC: LAB 09:32
PROVIDERS: ATTEND Nurse Practitioner Family
DX: K31.84 Gastroparesis (principal)

== ENCOUNTER 2023-09-27 14:51 | Emergency (ER) | payer BC ==
[~2023-09-27] VITALS: Ht 157.4 cm; Wt 107.5 kg
[2023-09-27] MEDS ORDERED: FAMOTIDINE20 M1 PO (15:02)
[2023-09-27] MEDS ORDERED: GOOD NEIGHBOR L10 MG PO (15:02)
[2023-09-27] MEDS ORDERED: SUMATRIPTAN SUC50 M1 PO (15:03)
[2023-09-27] MEDS ORDERED: TOPIRAMATE25 M3 PO (15:03)
[2023-09-27] MEDS ORDERED: SERTRALINE HYDR50 MG PO (15:03)
[2023-09-27] MEDS ORDERED: METOCLOPRAMIDE H5 M1 PO (15:04)
== END 2023-09-27 17:51 | disposition home or self-care (01) ==
LOC: ED 14:51
DX: S06.0XAA Concussion with loss of consciousness status unknown, initial encounter (principal); R11.2 Nausea with vomiting, unspecified; H53.8 Other visual disturbances; K21.9 Gastro-esophageal reflux disease without esophagitis; J45.909 Unspecified asthma, uncomplicated; Z87.442 Personal history of urinary calculi; F10.10 Alcohol abuse, uncomplicated; Z88.8 Allergy status to other drugs, medicaments and biological substances; Z90.89 Acquired absence of other organs; Z98.51 Tubal ligation status; Z98.890 Other specified postprocedural states; W22.8XXA Striking against or struck by other objects, initial encounter; Y93.89 Activity, other specified; Y92.830 Public park as the place of occurrence of the external cause; Y99.8 Other external cause status